=== PATIENT | female | born 1970 ===

== ENCOUNTER 2017-10-17 22:10 | Emergency (ER) | payer OTHER ==
[2017-10-17] MEDS ORDERED: DELTASONE PO ONE (23:40)
[2017-10-17] MEDS ORDERED: ULTRAM PO ONE (23:40)
--- NOTE | 2017-10-17 23:44 | Emergency Department Report ---
HPI - General Chief Complaint: Extremity Injury, Lower Time Seen by Provider: 10/17/17 23:31 - HPI HPI: She is a 47-year-old female presents to ED complaining of right foot pain for the past 3 days. Patient is a Welsh-speaking female who resides with her adult male and female children acting as translators. Patient states son states that mother had no trauma or injury or fall to the foot. She just started complaining of pain 3 days ago. Patient states sides, red and swollen the past 3 days. She states she has no history of any medical condition known to her. She denies any fever/chills/nausea/vomiting/loss of sensation of the foot/dizziness/sob/cp/calf pain/ankle pain/trauma. ED Past Medical Hx - Past Medical History Previous Medical History?: No - Surgical History Past Surgical History?: No - Social History Smoking Status: Current Every Day Smoker Substance Use Type: None - Medications Home Medications: Home Medications Medication Instructions Recorded Confirmed Last Taken Type Acetaminophen/Codeine [Tylenol 1 tab PO Q6H PRN #10 tab 10/18/17 Unknown Rx /Codeine # 3 tab] Clindamycin [Clindamycin CAP] 300 mg PO Q8H #14 cap 10/18/[address] [Voltaren Dr] 75 mg PO BID #30 tablet 10/18/17 Unknown Rx ED Review of Systems ROS: Stated complaint: FOOT PAIN Other details as noted in HPI Constitutional: denies: chills, fever Eyes: denies: eye pain, eye discharge, vision change ENT: denies: ear pain, throat pain Respiratory: denies: cough, shortness of breath, wheezing Cardiovascular: denies: chest pain, palpitations Endocrine: no symptoms reported Gastrointestinal: denies: abdominal pain, nausea, diarrhea Genitourinary: denies: urgency, dysuria, discharge Musculoskeletal: denies: back pain, joint swelling, arthralgia Skin: denies: rash, lesions Neurological: denies: headache, weakness, paresthesias Psychiatric: denies: anxiety, depression Hematological/Lymphatic: denies: easy bleeding, easy bruising Physical Exam - Physical Exam Vital Signs: Vital Signs 10/17/17 22:17 Temperature 98.2 F Pulse Rate 78 Respiratory 18 Rate Blood Pressure 126/58 O2 Sat by Pulse 99 Oximetry Physical Exam: GENERAL: Alert and oriented x3, no apparent distress, Normal Gait, atraumatic. HEAD: Head is normocephalic and a-traumatic. LUNGS: Symetrical with respiration, No wheezing, no rales or crackles, CTAB. HEART: S1, S2 present, regular rate and rhythm without murmur, no rubs, no gallops. Non tender to palpation EXTREMITIES/MUSCULOSKELETAL: No cyanosis, clubbing, rash, lesions or edema. Full ROM bilaterally. UE/LE Pulses 2+ bilaterally. LE and UE 5+ strength bilaterally, right anterior lateral foot erythematous, mildly swollen, tender to palpation. Patient able to apply pressure to the foot. The foot is mildly warm to touch. Toes are nontender to palpation. No sign of puncture wounds seen. NEUROLOGIC: The patient is cooperative with no focal neurologic deficits. Normal speech. Normal sensation in bilateral upper and lower extremities, No loss of sensation, SKIN: Warm and dry, No lesions, No ulceration or induration present. ED Course Vital Signs 10/17/17 22:17 Temperature 98.2 F Pulse Rate 78 Respiratory 18 Rate Blood Pressure 126/58 O2 Sat by Pulse 99 Oximetry ED Medical Decision Making - Radiology Data Radiology results: report reviewed, image reviewed FINAL REPORT PROCEDURE: XR FOOT 3+V RT TECHNIQUE: RIGHT foot radiographs, AP and lateral views. HISTORY: foot pain/swelling COMPARISON: No prior studies are available for comparison. FINDINGS: Fracture (s) and/or Dislocation(s): None. There is a bipartite navicular bone which is a normal variation. Alignment: Normal. Joint space(s): Normal. Soft tissues: There is dorsal soft tissue swelling of the forefoot. Bone mineralization: Normal. Foreign bodies: None. Calcaneal spurring: None. IMPRESSION: There are no acute bony abnormalities. There is soft tissue swelling of the forefoot. Transcribed By: CO Dictated By: EVIN BANDA MD Electronically Authenticated By: EVIN BANDA MD Signed Date/Time: 10/17/172027 - Medical Decision Making 47-year-old female presents with ED course: Patient received Ultram and prednisone X-rays ordered. X-rays show no acute injuries or dislocation. I discussed findings with the patient and children simultaneously that the mother would have to follow-up with primary care physician for a tested for gout I discussed the patient she will be going home with antibiotics and pain medication for the cellulitis of the foot. I discussed with the family that due to no joint involvement gallop is less likely persisted and is to be tested for it. I discussed with the patient to keep her foot dry and elevated and rested for the next couple days. Vital signs are normal patient is in no acute distress syndrome instructions given all questions answered. Children states that she would call make an appointment to be seen by primary care physician as well as dry house tender has referred - Differential Diagnosis 1. Gout 2. cellulitis 3. Sprain Critical care attestation.: If time is entered above; I have spent that time in minutes in the direct care of this critically ill patient, excluding procedure time. ED Disposition Clinical Impression: Cellulitis of foot without toes, right, Foot pain, right Disposition: TO HOME OR SELFCARE Is pt being admited?: No Does the pt Need Aspirin: No Condition: Stable Instructions: Cellulitis (ED), Acute Gouty Arthritis (ED), Foot Sprain (ED) Additional Instructions: Make sure to follow up with the primary care physician as discussed. Take all your medications as you've been prescribed. If you have any worsening symptoms or develop new symptoms please return to ED immediately. Prescriptions: Acetaminophen/Codeine [Tylenol /Codeine # 3 tab] 1 tab PO Q6H PRN #10 tab PRN Reason: Pain Clindamycin [Clindamycin CAP] 300 mg PO Q8H #[address] [Voltaren Dr] 75 mg PO BID #30 tablet Referrals: PRIMARY CARE, [Primary Care Provider] - 3-5 Days AMY AUGUSTINE MD [Staff Physician] - 3-5 Days CARIDAD KELLOGG MD [Referring] - 3-5 Days [facility] [Outside] - 3-5 Days [facility] [Outside] - 3-5 Days [facility] [Outside] - 3-5 Days Forms: Accompanied Note, Work/School Release Form(ED) Time of Disposition: 01:08 Print Language: ARABIC
--- NOTE | 2017-10-18 00:30 | XRay Report ---
FINAL REPORT PROCEDURE: XR FOOT 3+V RT TECHNIQUE: RIGHT foot radiographs, AP and lateral views. HISTORY: foot pain/swelling COMPARISON: No prior studies are available for comparison. FINDINGS: Fracture (s) and/or Dislocation(s): None. There is a bipartite navicular bone which is a normal variation. Alignment: Normal. Joint space(s): Normal. Soft tissues: There is dorsal soft tissue swelling of the forefoot. Bone mineralization: Normal. Foreign bodies: None. Calcaneal spurring: None. IMPRESSION: There are no acute bony abnormalities. There is soft tissue swelling of the forefoot.
[2017-10-18 01:39] VITALS: BP 121/62
== END 2017-10-18 01:39 | disposition home or self-care (01) ==
LOC: ED 22:10
DX: L03.115 Cellulitis of right lower limb (principal); F17.200 Nicotine dependence, unspecified, uncomplicated
CPT/HCPCS: 73630; 99283; J7512

== ENCOUNTER 2017-10-23 11:08 | Emergency (ER) | payer OTHER ==
[2017-10-23 11:53] LABS: Basophils % (Auto) 0.4 % (0.0-1.8); Eosinophils % (Auto) 0.4 % (0.0-4.3); Hematocrit 41.3 % (30.3-42.9); Hemoglobin 13.4 gm/dl (10.1-14.3); Mean Corpuscular HGB Conc 33 % (30-34); Mean Corpuscular Hemoglobin 32 pg (28-32); Mean Corpuscular Volume 98 fl (79-97); Platelet Count 446 K/mm3 (140-440); Red Blood Count 4.21 M/mm3 (3.65-5.03); Red Cell Distribution Width 13.1 % (13.2-15.2); White Blood Count 16.5 K/mm3 (4.5-11.0)
[2017-10-23 12:14] LABS: Alanine Aminotransferase 19 units/L (7-56); Alkaline Phosphatase 80 units/L (35-129); Anion Gap 19 mmol/L; BUN/Creatinine Ratio 30; Blood Urea Nitrogen 15 mg/dL (7-17); Calcium 8.9 mg/dL (8.4-10.2); Carbon Dioxide 24 mmol/L (22-30); Chloride 100.5 mmol/L (98-107); Glucose 97 mg/dL (65-100); Potassium 4.6 mmol/L (3.6-5.0); Sodium 139 mmol/L (137-145); Total Protein 7.9 g/dL (6.3-8.2)
--- NOTE | 2017-10-23 13:37 | Cat Scan Report ---
CT HEAD WITHOUT CONTRAST: HISTORY: Left arm weakness. TECHNIQUE: Sequential 2.5mm CT images. COMPARISON: none. FINDINGS: There is an indistinct 4 cm area of vasogenic edema in the right posterior frontal lobe. This noncontrast CT appearance is more suggestive of an underlying nonvisualized mass although an ischemic insult could be considered. There is no evidence for hemorrhage, midline shift or extra-axial fluid collection. The remainder of the brain parenchyma demonstrates normal attenuation. Ventricular size is within normal limits. The posterior fossa is unremarkable. The calvarium, sinuses and mastoid air cells are within normal limits. IMPRESSION: Nonspecific edema in the right posterior frontal lobe most suggestive of an underlying brain mass. Further evaluation with MRI with contrast is recommended. Less likely an ischemic insult could be considered. Please correlate with the clinical presentation of the patient.
[2017-10-23 20:19] LABS: Bacteria,Urine 4+ /HPF (Negative); Bilirubin,Urine NEG (Negative); Blood,Urine MOD (Negative); Ketones,Urine NEG (Negative); Leukocyte Esterase,Urine SM (Negative); Mucus,Urine FEW /HPF; Nitrite,Urine POS (Negative); Protein,Urine <15 mg/dL mg/dL (Negative); Urobilinogen,Urine < 2.0 mg/dL (<2.0)
[2017-10-23] MEDS ORDERED: NACL 0.9% 1000 ML 1,000 ML IV ONE (21:05)
--- NOTE | 2017-10-23 21:23 | Emergency Department Report ---
ED Neuro Deficit HPI - General Chief Complaint: Neuro Symptoms/Deficit Stated Complaint: RIGHT FOOT SWOLLEN Time Seen by Provider: 10/23/17 20:26 Source: patient, family () Mode of arrival: Ambulatory Limitations: Language Barrier - History of Present Illness Initial Comments: 47 yo female with c/o left upper extremity weakness and left face numbness for 3 days. There is no weakness of the left leg a or facial droop. Pt believed that the clindamycin is the cause of her symptoms. She has had a right foot cellulitis for 15 days and has used clindamycin without results. Pt is c/o of increasing foot pain and swelling. She was initially seen in the [facility] area of the ED 10/18/2017 for cellulitis -: days(s) (3) Location: left face, left arm Presenting Symptoms: Absent: Weak/Paralyzed One Side, Sudden, Severe Headache, Blurred/Loss of Vision, Facial Droop/Numbness, Unable to Speak Clearly, Altered Mental Status History of same: No Place: home Severity: moderate Quality: weak, numb, tingling (left face and left arm) Improves With: none Worsens With: none On Anticoagulants: No Context: sudden onset (3 days ago) Associated Symptoms: denies other symptoms - Related Data Home Medications: Previous Rx's Medication Instructions Recorded Last Taken Type Acetaminophen/Codeine [Tylenol 1 tab PO Q6H PRN #10 tab 10/18/17 10/23/17 Rx /Codeine # 3 tab] Allergies/Adverse Reactions: Allergies Allergy/AdvReac Type Severity Reaction Status Date / Time No Known Allergies Allergy Unverified 10/23/17 20:21 ED Review of Systems ROS: Stated complaint: RIGHT FOOT SWOLLEN Other details as noted in HPI Constitutional: denies: chills, fever Eyes: denies: eye pain, eye discharge, vision change ENT: denies: ear pain, throat pain Respiratory: denies: cough, shortness of breath, wheezing Cardiovascular: denies: chest pain, palpitations Endocrine: no symptoms reported Gastrointestinal: denies: abdominal pain, nausea, diarrhea Genitourinary: denies: urgency, dysuria, discharge Musculoskeletal: joint swelling (right foot). denies: back pain, arthralgia Skin: lesions, change in color (right foot red,warm). denies: rash Neurological: denies: headache, weakness, paresthesias Psychiatric: denies: anxiety, depression Hematological/Lymphatic: denies: easy bleeding, easy bruising ED Past Medical Hx - Past Medical History Previous Medical History?: Yes Additional medical history: right foot cellulitis, bilateral breast implants - Surgical History Past Surgical History?: Yes Additional Surgical History: breast implants - Family History Family history: no significant - Social History Smoking Status: Current Every Day Smoker Substance Use Type: None - Medications Home Medications: Home Medications Medication Instructions Recorded Confirmed Last Taken Type Acetaminophen/Codeine [Tylenol 1 tab PO Q6H PRN #10 tab 10/18/17 10/23/17 Rx /Codeine # 3 tab] ED Neuro Physical Exam - General Limitations: Language Barrier (Estonian) General appearance: alert, in no apparent distress Suspected Stroke: Yes - Head Head exam: Present: atraumatic, normocephalic - Eye Eye exam: Present: normal appearance, EOMI. Absent: scleral icterus - ENT ENT exam: Present: mucous membranes moist - Neck Neck exam: Present: normal inspection, full ROM - Respiratory Respiratory exam: Present: normal lung sounds bilaterally. Absent: respiratory distress, wheezes, rales - Cardiovascular Cardiovascular Exam: Present: regular rate, normal rhythm, normal heart sounds. Absent: systolic murmur, diastolic murmur, rubs, gallop - GI/Abdominal GI/Abdominal exam: Present: soft, normal bowel sounds - Extremities Exam Extremities exam: Present: tenderness (dorsum of foot near 2nd, 3rd, and 4th digits, erythema,swelling, pus), pedal edema - Back Exam Back exam: Present: normal inspection, full ROM - Neurological Exam Neurological exam: Present: alert, oriented X3, abnormal gait (secondary to right foot abscess and cellulitis), motor sensory deficit (left upper extremity 3/5 motor, numb face and left arm) - NIHSS Assessment Interval: Baseline 1a. Level of Consciousness: alert 1b. LOC Questions: answers correctly 1c. LOC Commands: performs tasks correctly 2. Best Gaze: normal 3. Visual: no visual loss 4. Facial Palsy: normal symmetrical movement 5b. Motor Arm Right: no drift 5a. Motor Arm Left: drift (left upper extremity) 6a. Motor Leg Left: no drift 6b. Motor Leg Right: no drift 7. Limb Ataxia: present 1 limb (LEFT ARM) 8. Sensory: mild/moderate sensory loss (LEFT FACE AND LEFT BODY) 9. Best Language: no aphasia 10. Dysarthria: normal 11. Extinction/Inattention: no abnormality Total Score: 3 Stroke Severity: Minor Stroke - Psychiatric Psychiatric exam: Present: normal affect, normal mood - Skin Skin exam: Present: warm, dry, intact, normal color. Absent: rash ED Course Vital Signs 10/23/17 10/23/17 10/23/17 11:20 17:29 18:54 Temperature 98.1 F 98.7 F Pulse Rate 83 71 Respiratory 18 20 Rate Blood Pressure 129/76 Blood Pressure 100/65 [Left] O2 Sat by Pulse 99 100 99 Oximetry 10/23/17 10/23/17 18:58 19:30 Temperature 98.6 F 98.5 F Pulse Rate 70 70 Respiratory 20 16 Rate Blood Pressure Blood Pressure 99/68 103/59 [Left] O2 Sat by Pulse 100 99 Oximetry - Reevaluation(s) Reevaluation #1: 10/23/17 21:39[facility], NEUROSURGEON DR KIAN LINDQUIST ACCEPTED THE PT TO HID SERVICE. HE WOULD LIKE THE PT TO BE LOADED WITH [employer] - Lab Data Result diagrams: 10/23/17 11:41 10/23/17 11:41 Lab Results 10/23/17 10/23/17 10/23/17 Range/Units 11:41 11:41 20:05 WBC 16.5 H (4.5-11.0) K/mm3 RBC 4.21 (3.65-5.03) M/mm3 Hgb 13.4 (10.1-14.3) gm/dl Hct 41.3 (30.3-42.9) % MCV 98 H (79-97) fl MCH 32 (28-32) pg MCHC 33 (30-34) % RDW 13.1 L (13.2-15.2) % Plt Count 446 H (140-440) K/mm3 Lymph % (Auto) 8.9 L (13.4-35.0) % [place] % (Auto) 7.7 H (0.0-7.3) % Eos % (Auto) 0.4 (0.0-4.3) % Baso % (Auto) 0.4 (0.0-1.8) % Lymph # 1.5 (1.2-5.4) K/mm3 [place] # 1.3 H (0.0-0.8) K/mm3 Eos # 0.1 (0.0-0.4) K/mm3 Baso # 0.1 (0.0-0.1) K/mm3 Seg Neutrophils % 82.6 H (40.0-70.0) % Seg Neutrophils # 13.6 H (1.8-7.7) K/mm3 Sodium 139 (137-145) mmol/L Potassium 4.6 (3.6-5.0) mmol/L Chloride 100.5 (98-107) mmol/L Carbon Dioxide 24 (22-30) mmol/L Anion Gap 19 mmol/L BUN 15 (7-17) mg/dL Creatinine 0.5 L (0.7-1.2) mg/dL Estimated GFR > 60 ml/min BUN/Creatinine Ratio 30 % Glucose 97 (65-100) mg/dL Calcium 8.9 (8.4-10.2) mg/dL Total Bilirubin 0.20 (0.1-1.2) mg/dL AST 19 (5-40) units/L ALT 19 (7-56) units/L Alkaline Phosphatase 80 (35-129) units/L Total Protein 7.9 (6.3-8.2) g/dL Albumin 4.0 (3.9-5) g/dL Albumin/Globulin Ratio 1.0 % Urine Color Yellow (Yellow) Urine Turbidity Clear (Clear) Urine pH 5.0 (5.0-7.0) Ur Specific [place] 1.019 (1.003-1.030) Urine Protein <15 mg/dl (Negative) mg/dL Urine Glucose (UA) Neg (Negative) mg/dL Urine Ketones Neg (Negative) mg/dL Urine Blood Mod (Negative) Urine Nitrite Pos (Negative) Ur Reducing Substances Not Reportable Urine Bilirubin Neg (Negative) Urine Ictotest Not Reportable Urine Urobilinogen < 2.0 (<2.0) mg/dL Ur Leukocyte Esterase Sm (Negative) Urine WBC (Auto) 12.0 H (0.0-6.0) /HPF Urine RBC (Auto) 5.0 (0.0-6.0) /HPF U Epithel Cells (Auto) 3.0 (0-13.0) /HPF Urine Bacteria (Auto) 4+ (Negative) /HPF Urine Mucus Few /HPF Critical Care Time: Yes (60) Critical care attestation.: If time is entered above; I have spent that time in minutes in the direct care of this critically ill patient, excluding procedure time. LONNIE Critical Care Time: 60MIN ED Disposition Clinical Impression: Cerebral edema, Cellulitis of foot, right, Abscess of right foot including toes UTI (urinary tract infection) Qualifiers: Urinary tract infection type: acute cystitis Hematuria presence: with hematuria Qualified Code(s): N30.01 - Acute cystitis with hematuria Disposition: DC/TX-70 ANOTHER TYPE HLTHCARE Is pt being admited?: Yes Does the pt Need Aspirin: No Condition: Serious Referrals: PRIMARY CARE, [Primary Care Provider] - 3-5 Days Time of Disposition: 21:42 (PT TO BE TRANSFERRED TO [facility])
[2017-10-23] MEDS ORDERED: ZOSYN/NS 3.375GM/50ML 3.375 GM/50 ML BAG IV SCH (22:00)
[2017-10-23] MEDS ORDERED: KEPPRA 1,000 MG in NACL 0.9% 100 ML IV SCH (22:00)
[2017-10-23 22:49] VITALS: BP 120/85
== END 2017-10-23 23:37 | disposition other institution (70) ==
LOC: ED 11:08
DX: G93.6 Cerebral edema (principal); L03.115 Cellulitis of right lower limb; L02.611 Cutaneous abscess of right foot; N39.0 Urinary tract infection, site not specified; F17.200 Nicotine dependence, unspecified, uncomplicated
CPT/HCPCS: 36415; 70450; 80053; 81001; 81025; 85025; 96361; 96365; 96366; 99291; J1953; J2543; J7030